=== PATIENT | male | born 2000 | race Caucasian/White ===

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

== ENCOUNTER 2022-07-24 15:23 | Outpatient (CLI) | payer OTHER, SELFPAY ==
[2022-07-24 19:20] LABS: Hemoglobin A1C 8.3 % (<5.7)
== END 2022-07-24 15:24 | disposition home or self-care (01) ==
LOC: ANHGOSHLAB 15:24
PROVIDERS: PCP Family Medicine; Visit Provider Family Medicine
DX: E10.9 Type 1 diabetes mellitus without complications (principal)
CPT/HCPCS: 36415; 83036

== ENCOUNTER 2023-01-08 15:18 | Outpatient (CLI) | payer OTHER, SELFPAY ==
[2023-01-08 20:12] LABS: Creatinine Urine 116.4 mg/dL
[2023-01-08 20:16] LABS: MALB Creatinine Ratio 21.7 mg/g (0-30); Microalbumin Urine Random 25.3 mg/L (0-16.7)
[2023-01-08 20:19] LABS: Hemoglobin A1C 8.8 % (<5.7)
== END 2023-01-08 15:19 | disposition home or self-care (01) ==
LOC: ANHGOSHLAB 15:19
PROVIDERS: PCP Family Medicine; Visit Provider Family Medicine
DX: E10.9 Type 1 diabetes mellitus without complications (principal)
CPT/HCPCS: 36415; 82043; 83036

== ENCOUNTER 2024-10-10 16:38 | Emergency (ER) | payer OTHER, SELFPAY ==
--- NOTE | ~2024-10-10 | XR_ITS ---
XR hand LT min 3V Ordering provider: Franci Fournier APRN History: . LT 5th mcp pain, finger bent backwards 2 days ago . Comparison: None. FINDINGS: BONES: No acute fracture or dislocation. JOINT SPACES: Well maintained. SOFT TISSUES: Unremarkable. IMPRESSION: No acute osseous abnormality left hand. Reviewed, dictated and finalized at location A.
--- OUTSIDE RECORDS SUMMARY | 2024-10-10 16:40 | XMS_ITS | Encounter Summary ---
Author Organization [facility] Address [address] [place] [address] Care Team Providers Care Neck Band Setter Name Role Phone Roni Tipton MD Primary Care Provider +1- [phone] Reason for Visit * Reason Onset Date Comments Results 04/28/2018 Encounter Details Date Type Department Care Team (Late st Contact Info) Description 04/28/2018 Telephone [facility] Pediatrics - Diabetes [address] [address] Nabeel Clemens, DOPE EDGER-JEWELRY COATER [address] [place] [phone] Results Social History Tobacco Use Types Packs/Day Years Used Date Smoking Tobacco: Never Smokeless Tobacco: Never Alcohol Use Standard Drinks/Week Comments Not Asked 0 (1 standard drink = 0.6 oz pur e alcohol) Sex and Gender Information Value Date Recorded Sex Assigned at Not on file Legal Sex Male 10:34 AM CDT Gender Identity Not on file Sexual Orientation Not on file documented as of this encounter Miscellaneous Notes * Telephone Encounter - Jimmy Fernandez RN - 04/28/2018 1:24 PM CST Notified mom that TSH and TTG were WNL, copy faxed to Dr Roni Tipton per mom's request. NING SPECIALIST documented in this encounter Plan of Treatment Not on file documented as of this encounter Visit Diagnoses Not on filedocumented in this encounter Care Teams Neck Band Setter Relationship Specialty Start Date End Date Roni Tipton MD [address] [place] [phone] PCP - General Family Medicine 07/13/14 documented as of this encounter
--- OUTSIDE RECORDS SUMMARY | 2024-10-10 16:40 | XMS_ITS | Encounter Summary ---
Author Organization [facility] Address [address] [place] [address] Care Team Providers Care Stab Setter And Driller Name Role Phone Roni Tipton MD Primary Care Provider +1- [phone] Encounter Details Date Type Department Care Team (Late st Contact Info) Description 10/12/2019 Telephone [facility] Pediatrics - Diabetes [address] [address] Nabeel Clemens, NATALI-BALL TRUING MACHINE OPERATOR [address] [place] [phone] Social History Tobacco Use Types Packs/Day Years [...] encounter Miscellaneous Notes * Telephone Encounter - Criss Gaines RN - 10/12/2019 9:39 AM CDT Talked to mom about care plan for school. School letter was mailed to home. documented in this encounter Plan of Treatment Not on file documented as of this encounter Visit Diagnoses Not on filedocumented in this encounter Care Teams Stab Setter And Driller Relationship Specialty Start Date End Date Roni Tipton MD [address] [place] [phone] PCP - General Family Medicine 07/13/14 documented as of this encounter
--- OUTSIDE RECORDS SUMMARY | 2024-10-10 16:40 | XMS_ITS | Encounter Summary ---
Author Organization [facility] Address [address] [address] Care Team Providers Care City Bailiff Name Role Phone Roni Tipton MD Primary Care Provider +1- [phone] Reason for Visit * Reason Onset Date Comments MEDICATION REFILL 08/28/2016 Encounter Details Date Type Department Care Team (Late st Contact Info) Description 08/28/2016 Refill [facility] Pediatrics - Endocrinology [address] [place] [address] Nemesio Boone MD [address] [place] [phone] MEDICATION REFILL Social History Tobacco Use Types Packs/Day Years Used Date Smoking Tobacco: Never Alcohol Use Standard Drinks/Week Comments Not Asked 0 (1 standard drink = 0.6 oz pur e alcohol) Sex and Gender Information Value Date Recorded Sex Assigned at Not on file Legal Sex Male 10:34 AM CDT Gender Identity Not on file Sexual Orientation Not on file documented as of this encounter Plan of Treatment Not on file documented as of this encounter Visit Diagnoses Diagnosis Type 1 diabetes mellitus without complication, with long-term current use of insulin (HCC) documented in this encounter Care Teams City Bailiff Relationship Specialty Start Date End Date Roni Tipton MD [address] [place] [phone] PCP - General Family Medicine 07/13/14 documented as of this encounter
--- OUTSIDE RECORDS SUMMARY | 2024-10-10 16:40 | XMS_ITS | Encounter Summary ---
Author Organization [facility] Address [address] [place] [address] Care Team Providers Care Cell Liner Name Role Phone Roni Tipton MD Primary Care Provider +1- [phone] Encounter Details Date Type Department Care Team (Late st Contact Info) Description 10/22/2017 Telephone [facility] Pediatrics - Diabetes [address] [address] Nabeel Clemens, HAND SINGER-RN CONCURRENT REVIEW [address] [place] [phone] Social History Tobacco Use Types Packs/Day Years [...] Telephone Encounter - Jimmy Fernandez RN - 10/22/2017 12:18 PM CDT Received fax from [facility] that Freestyle strips prescription is approved until 10/22/18, no quantity specified. Will update pharmacy. documented in this encounter Plan of Treatment Not on file documented as of this encounter Visit Diagnoses Not on filedocumented in this encounter Care Teams Cell Liner Relationship Specialty Start Date End Date Roni Tipton MD [address] [place] [phone] PCP - General Family Medicine 07/13/14 documented as of this encounter
--- OUTSIDE RECORDS SUMMARY | 2024-10-10 16:40 | XMS_ITS | Encounter Summary ---
Author Organization [facility] Address [address] [place] [address] Care Team Providers Care Internet Marketing Assistant Name Role Phone Roni Tipton MD Primary Care Provider +1- [phone] Reason for Visit * Reason Onset Date Comments General 12/03/2015 Encounter Details Date Type Department Care Team (Late st Contact Info) Description 12/03/2015 Telephone [facility] Pediatrics - Diabetes [phone] [place] [address] Nabeel Clemens, FERN PICKER-FINAL TESTER [address] [place] [phone] General Social History Tobacco Use Types Packs/Day Years [...] encounter Miscellaneous Notes * Telephone Encounter - Lenka Jon RN - 05/12/2016 1:48 PM DEICER ELEMENT WINDER MACHINE Returned call to mother to report that labs were not received. She is calling [facility] to follow up. Mother also asked how to use readings from Dexcom. Reviewed she would need to download Dexcom Clarityapp, get clarity code and call office when set up. She agreed. ER ELEMENT WINDER MACHINE * Telephone Encounter - Jimmy Fernandez RN - 12/03/2015 1:48 PM CDT I returned mom's call, reports Chai is having severe skin reactions once he takes his pods off theskin- blistering and irritation, takes 12 days to heal on average. This is new problem for Chai, and started with the latest box of PODS. They have called Brian, who reports this is a new issue, and they offered to replace the pods causing the irritation. Flight Engineer Performance Qualified reports the adhesive has not been changed but [facility] is receiving numerous similar calls suggesting otherwise. I advised, per Donte Clemens, PNP-BC- spray area with Flonase prior to placing pod. May also order tough pads on [employer] to act as barrier. Contact PMD for signs of infection. Mom agreed. documented in this encounter Plan of Treatment Not on file documented as of this encounter Visit Diagnoses Not on filedocumented in this encounter Care Teams Internet Marketing Assistant Relationship Specialty Start Date End Date Roni Tipton MD [address] [place] [phone] PCP - General Family Medicine 07/13/14 documented as of this encounter
--- OUTSIDE RECORDS SUMMARY | 2024-10-10 16:40 | XMS_ITS | Encounter Summary ---
Author Organization [facility] Address [address] [place] [address] Care Team Providers Care Grades 1 Thru 5 Teacher Name Role Phone Roni Tipton MD Primary Care Provider +1- [phone] Encounter Details Date Type Department Care Team (Late st Contact Info) Description 08/22/2018 Telephone [facility] Pediatrics - Diabetes [address] [address] Nabeel Clemens, MINISTER ASSISTANT-SKEIN YARN DYER [address] [place] [phone] Social History Tobacco Use Types Packs/Day Years [...] Telephone Encounter - Lenka Jon RN - 09/02/2018 3:07 PM CDT Bernardino submitted for test strips to [facility] covermymeds. * Telephone Encounter - Madina Ryan RN - 08/22/2018 12:44 PM CDT I returned mom's call regarding Chai wanting to stop using omnipod for right now and switch back to injections. She did not answer, LMOM for her to call back. My recommendations based on current insulin pump settings are: Lantus: 47 units Humalog: Breakfast: 1:8 Lunch: 1:5 Dinner: 1:5 Correction: 1unit for 40mg/dL BG is >150 documented in this encounter Plan of Treatment Not on file documented as of this encounter Visit Diagnoses Not on filedocumented in this encounter Care Teams Grades 1 Thru 5 Teacher Relationship Specialty Start Date End Date Roni Tipton MD [address] [place] [phone] PCP - General Family Medicine 07/13/14 documented as of this encounter
--- OUTSIDE RECORDS SUMMARY | 2024-10-10 16:40 | XMS_ITS | Encounter Summary ---
Author Organization [facility] Address [address] [place] [address] Care Team Providers Care Air Chief Marshal Name Role Phone Roni Tipton MD Primary Care Provider +1- [phone] Reason for Visit * Reason Comments Refill Request Encounter Details Date Type Department Care Team (Late st Contact Info) Description 03/14/2019 Refill [facility] Pediatrics - Diabetes [address] [address] Chelly Balderas MD Refill Request Social History Tobacco Use Types Packs/Day Years [...] encounter Miscellaneous Notes * Telephone Encounter - Lazara Elaine RN - 03/15/2019 12:07 PM CST I returned call to mother and scheduled Chai for 04/12/19 for follow up visit with Donte Clemens. FILLER documented in this encounter Plan of Treatment Not on file documented as of this encounter Visit Diagnoses Not on filedocumented in this encounter Care Teams Air Chief Marshal Relationship Specialty Start Date End Date Roni Tipton MD [address] [place] [phone] PCP - General Family Medicine 07/13/14 documented as of this encounter
--- OUTSIDE RECORDS SUMMARY | 2024-10-10 16:40 | XMS_ITS | Encounter Summary ---
Author Organization [facility] Address [address] [place] [address] Care Team Providers Care Leather Crafter Name Role Phone Roni Tipton MD Primary Care Provider [phone]- [phone] Encounter Details Date Type Department Care Team (Late st Contact Info) Description 11/30/2019 Telephone [facility] - Diabetes [address] [address] Nabeel Clemens, NATALI-ADULT BASIC EDUCATION INSTRUCTOR [address] [place] [phone] Social History Tobacco Use Types Packs/Day Years [...] Telephone Encounter - Criss Gaines RN - 11/30/2019 9:42 AM CDT VICKIE sent for Dexcom. documented in this encounter Plan of Treatment Not on file documented as of this encounter Visit Diagnoses Not on filedocumented in this encounter Care Teams Leather Crafter Relationship Specialty Start Date End Date Roni Tipton MD [address] [place] [phone] PCP - General Family Medicine 07/13/14 documented as of this encounter
--- OUTSIDE RECORDS SUMMARY | 2024-10-10 16:40 | XMS_ITS | Clinical Summary ---
Author Organization [facility] Address [address] [place] [address] Care Team Providers Care Library Media Specialist Name Role Phone Roni Tipton MD Primary Care Provider [phone]- [phone] Source Comments [facility],non-owned Affiliates and Associated Physician Practices is amultiple site organization consisting of ambulatory clinics and hospital sitesin [place], [place], [place] and [place]. This disclosure is being madepursuant to the Care Everywhere program and may not contain all information available regarding this patient. Last updated 17.[facility] Allergies No known active allergies Medications * Be aware that medications may not be up to date on this document. Alwaysverify current medications with the patient. Transparent Dressings MISC Use for pump site changes every 2-3 days. Dispense dressing size approximately 2x3 in size. 15 Each 09/22/19 15 Active insulin lispro (HUMALOG) 100 UNIT/ML vialIndications: Type 1 diabetes mellitus without complication, with long-term current use of insulin (HCC) Use max 100 units daily with insulin pump as directed 30 mL 5 06/07/19 19 Active insulin syringe-needle (BD ULTRAFINE II) 31G X 08/18 0.5 ML syringe Use with meals and snacks 4-6 times per day. 200 Each 3 08/25/19 19 Active FREESTYLE TEST STRIP test strip USE TO CHECK GLUCOSE 5 TO 9 TIMES DAILY 200 strip 10 09/03/19 Active Blood Glucose Monitoring Suppl (ONETOUCH VERIO FLEX SYSTEM) w/Device KIT Use 1 kit as directed 2 kit 09/15/19 Active ONETOUCH DELICA LANCETS 33G MISC Use 1 Each as directed 200 Each 09/15/19 Active Insulin Pen Needle (CARETOUCH PEN NEEDLES) 32G X 4 MM MISC Use 1 Each 4 times daily 200 Each 09/15/19 Active glucagon (GLUCAGON EMERGENCY) injection Inject 1 mg into muscle as needed 2 kit 04/12/19 Active blood glucose (ONETOUCH VERIO) test strip Use to check 5-9 times a day or as directed. 200 strip 04/12/19 Active Insulin Pen Needle (BD PEN NEEDLE WALT U/F) 32G X 4 MM MISC Inject 1 Each subcutaneously once daily Use with insulin injections 4 to 6 times daily 200 Each 11 05/10/19 20 Active insulin glargine (LANTUS SOLOSTAR) pen Inject 51 units once daily at directed. Must perform a 2 unit air shot prior to administration of dose. Max daily 60 units/day. 30 mL 5 07/14/19 20 Active Continuous Blood Gluc Sensor (DEXCOM G6 SENSOR) MISC Inject 1 Each subcutaneously every 10 days 9 Each 3 01/31/20 20 Active Continuous Blood Gluc Transmit (DEXCOM G6 TRANSMITTER) MISCIndications: Type 1 diabetes mellitus without complication (HCC) USE 1 EVERY 90 DAYS 1 Each 2 05/07/19 21 Active pen needles 31G X 6 MM 31G X 6 MM Use as directed Use to administer insulin 4-6 times daily 200 Each 5 06/27/19 21 Active Basaglar KwikPen (BASAGLAR) pen INJECT 50 UNITS SUBCUTANEOUSLY AT BEDTIME WITH ADDITIONAL 2 UNITS PRIME OR DIRECTED. 30 mL 5 08/09/19 21 Active insulin lispro (HUMALOG;ADMELOG ) 100 UNIT/ML pen INJECT 1 UNIT UNDER THE SKIN FOR EVERY 5 GRAMS OF CARBOHYDRATE AT MEALS AND SNACKS, MAXIMUM DAILY DOSE IS 70 UNITS 30 mL 09/10/19 21 Active Active Problems Problem Noted Date Diagnosed Date Type 1 diabetes mellitus without complication Overview (01/03/2015): Diagnosed August 2008 Assessment & Plan (12/15/2019 2:01 PM CDT): 1) change correction dose to 2 per 50 over 150 2) think critically about blood sugars levels and make adjustments accordingly or call for help 3) return in 4 months for Donte Assessment & Plan (04/13/2019 8:54 AM BUS STARTER): 1) use correction scale of 1 per 50 over 150 2) may give correction dose every 2 hours if blood sugar is not in target range 3) call as needed to review blood sugars 4) return in [address] Balderas Assessment & Plan (04/25/2018 12:18 PM BUS STARTER): 1) increase lunch and dinner to 1:5 2) call to upgrade to g6 sensor 3) call as needed to review blood sugars 4) must stop skipping boluses for meals and snacks 5) return in [address] Balderas Assessment & Plan (10/22/2017 8:03 AM CDT): 1) must bolus with snacks in the afternoon 2) Need to send auth for freestyle strips to [facility] [phone], [id number] 3) bolus before meals and snacks 4) return in 3 months for Donte Assessment & Plan (08/07/2016 1:02 PM CDT): 1) increase 0000 basal to 1.6 2) must bolus pre-meal 3) must program BG's out of target range in with bolus events in order to get correction dose 4) if unable to calibrate sensor every 12 hours, must check BG 4 times daily 5) Return in [address] Balderas Assessment & Plan (12/31/2015 3:18 PM CDT): 1) increase basal from 2pm to 0000 to 1.5 units 2) change target during day to 100 3) call as needed to review blood sugar 4) check screening labs today 5) return in [address] Balderas Assessment & Plan (03/07/2015 9:08 AM BUS STARTER): 1) increase basal to 1.35 from 1pm-0000 and 1.25 from [phone] 2) increase isf to 40 3) call in one week to review blood sugars 4) return in may for Dr. Balderas Assessment & Plan (12/06/2014 8:49 AM CDT): 1) increase basal at 0000 to 1 units per hour 2) increase ic ratio at 8pm to 1:9 3) continue to work on pre-meal bolusing 4) return in 3 months for Donte, [address] Balderas Social History Tobacco Use Types Packs/Day Years Used Date Smoking Tobacco: Never Smokeless Tobacco: Never Alcohol Use Standard Drinks/Week Comments Not Asked 0 (1 standard drink = 0.6 oz pur e alcohol) Sex and Gender Information Value Date Recorded Sex Assigned at Not on file Legal Sex Male 10:34 AM CDT Gender Identity Not on file Sexual Orientation Not on file Last Filed Vital Signs Vital Sign Reading Time Taken Comments Blood Pressure 116/72 12/14/2019 2:19 PM CDT Pulse 80 03/06/2015 1:57 PM BUS STARTER Temperature - - Respiratory Rate 16 03/06/2015 1:57 PM BUS STARTER Oxygen Saturation - - Inhaled Oxygen Concentration - - Weight 105.2 kg (231 lb 14.8 oz) 12/14/2019 2:19 PM CDT Height 178.2 cm (5' 10.16) 12/14/2019 2:19 PM C DT Body Mass Index 33.13 12/14/2019 2:19 PM CDT Plan of Treatment Health Maintenance Due Date Last Done Comments HIV SCREENING 2017 HPV VACCINE (1 - Male 3-dose series) 2017 MENINGOCOCCAL (Group B) VACCINE SHARED DECISION-MAKING (1 of 2 - Standard) 2018 DIABETES-HGB A1C 06/12/2020 12/14/2019, 11/2019, 09/01/2018, Additional history exists HEPATITIS C SCREENING 07/30/2020 DIABETES-FOOT EXAM WITH MONOFILAMENT 2020 DIABETES-SERUM CREATININE 2020 DTAP/TDAP/TD VACCINES (1 - Tdap) 2021 HEPATITIS B VACCINE (1 of 3 - 19+ 3-dose series) 2021 COVID-19 VACCINE ( season) 2023 DEPRESSION SCREENING 04/05/2024 DIABETES - URINE PROTEIN SCREENING 04/05/2024 12/14/2019, 09/01/2018, 05/07/2016, Additional history exists INFLUENZA VACCINE (Season Ended) 2024 ZOSTER VACCINE (1 of 2) 2052 HIB VACCINE Aged Out No longer eligi ble based on patient's age to complete this topic MENINGOCOCCAL GROUPS A/C/Y/W VACCINE Aged Out No longer eligible based on patient's age to complete this topic PNEUMOCOCCAL VACCINE Aged Out No long er eligible based on patient's age to complete this topic Procedures Procedure Name Priority Date/Time Associated Diagnosis Comments MICROALB/CREAT RATIO URINE RANDOM PANEL Routine 12/14/2019 3:11 PM CDT Type 1 diabetes mellitus without complication HEMOGLOBIN A1C - POCT INTERFACED Routine 12/14/2019 2:21 PM CDT from Last 3 Months or Most Recently Relevant to Health Maintenance Results * MICROALB/CREAT RATIO URINE RANDOM PANEL (12/14/2019 3:11 PM CDT) Creatinine Urine 113.23 mg/dL 12/14/19 20 3:42 PM CDT [facility] Microalbumin Urine 1.5 <1.7 mg/dL 12/14/2019 3:42 PM CDT [facility] Microalbumin/Crea tinine Ratio 13 <30 mg/g 12/14/2019 3:42 PM CDT [facility] Urine URINE SPECIMEN OBTAINED BY CLEAN CATCH PROCEDURE / Unknown Collection / Unknown 12/14/2019 3:11 PM CDT 12/14/2019 3:15 PM CDT us Nabeel Clemens MEDICAL SCIENTIST-GRAPHITE GRINDER LAB - URINE CHEMISTRY O RDERABLES Final Result [facility] [phone] * (ABNORMAL) HEMOGLOBIN A1C - POCT INTERFACED (12/14/2019 2:21 PM CDT) Hemoglobin A1C POCT 8.6(H) 3.4 - 6.1 % 12/14/2019 2:28 PM CDT [facility] Estimated Average Glucose 200 mg/dL 12/14/2019 2:28 PM CDT [facility] Blood BLOOD SPECIMEN / Unknown 12/14/2019 2:21 PM CDT 12/14/2019 2:28 PM CDT Nabeel Clemens MEDICAL SCIENTIST-GRAPHITE GRINDER LAB - POINT OF CARE ORD ERABLES Final Result [facility] [address] [place] [address] from Last 3 Months or Most Recently Relevant to Health Maintenance Insurance [facility] [place] [address] [facility] [place] [address] Care Teams Library Media Specialist Relationship Specialty Start Date End Date Roni Tipton MD [address] [place] [phone] PCP - General Family Medicine 07/13/14
--- OUTSIDE RECORDS SUMMARY | 2024-10-10 16:40 | XMS_ITS | Encounter Summary ---
Author Organization [facility] Address [address] [place] [address] Care Team Providers Care Paper Cone Machine Tender Name Role Phone Roni Tipton MD Primary Care Provider [phone]- [phone] Reason for Visit * Reason Onset Date Comments MEDICATION REFILL 10/22/2017 Encounter Details Date Type Department Care Team (Late st Contact Info) Description 10/22/2017 Refill [facility] [address] [place] [address] Nabeel Clemens, NATALI-TEACHER OF THE HEARING IMPAIRED [address] [place] [phone] MEDICATION REFILL Social History Tobacco Use Types [...] (HCC) documented in this encounter Care Teams Paper Cone Machine Tender Relationship Specialty Start Date End Date Roni Tipton MD [facility] [place] [phone] PCP - General Family Medicine 07/13/14 documented as of this encounter
[2024-10-10 16:46] VITALS: BP 144/69; PULSE 98; RESP 16; TEMP 36.6; O2SAT 100
--- NOTE | 2024-10-10 17:07 | ED.GENADULT ---
HPI - General Adult General Chief complaint: Extremity Injury, Upper Stated complaint: LT Pinky Finger Infection History of Present Illness HPI narrative: Chai Lugo Is a 24-year-old male who presents today with complaints of having pain to his left 5th finger. He states that he was going down a water slide hands 1st 3 days ago and his left pinky jammed into the side of slide and hyper extended to the side laterally. He denies any pain to his hand pain is only to his pinky finger. Related Data Allergies Allergy/AdvReac Type Severity Reaction Status Date / Time No Known Allergies Allergy Verified 10/10/24 16:53 Review of Systems Review of Systems: All systems reviewed & are unremarkable except as noted in HPI and below PMFSH Past Medical History Medical History Type 1 diabetes mellitus without complications Surgical History Surgical History History of excision of pilonidal cyst 03/24/21 Family History Family History Grandparent Family history of cardiovascular disease Carcinoma of colon Family history of malignant neoplasm of breast Family history of malignant neoplasm of esophagus Father Hypertension Hypothyroidism Social History Social History Smoking status: Never smoker Alcohol intake: never Substance use: never Lack of Transportation: No Lack of Food: Never True Current Housing: I Have Housing Concerned About Future Housing: No Difficulty Paying Gas/Electric Bills: No Difficulty Paying for Meds: No Currently Unemployed: No Education: High School Diploma/GED Difficulty w/ Childcare or Family Care: No Living arrangements: with family Additional living arrangements comments: PARENTS Occupation/Education: student Spiritual care concerns: No Exam Narrative: GENERAL: Well-appearing, well-nourished, and in no acute distress. HEAD: Normocephalic, atraumatic. EYES: PERRLA and EOMI. ENT: Nares clear, no rhinorrhea or epistaxis. Mucous membranes moist. Oropharynx without tonsillar hypertrophy exudate or other lesions. NECK: Supple. No adenopathy or masses. No carotid bruits or JVD CHEST: Clear to auscultation. No respiratory distress. No wheezes rales or rhonchi HEART: Regular rate and rhythm. No murmur heard. Normal peripheral pulses. EXTREMITIES: Normal range of motion. No edema. Left fifth phalanx without any obvious deformity/ ecchymosis/ erythema or swelling + pain at the proximal phalanx, no pain to the metacarpals or MCP joint, neurovascular intact SKIN: Warm, dry, no rash. NEURO: No focal deficits. Alert and oriented x3. PSYCH: Normal mood and affect. Course Course Level of Care: Express Care Visit Vital Signs Vital signs: Vital Signs Temperature 36.6 C 10/10/24 16:46 Pulse Rate 98 10/10/24 16:46 Respiratory Rate 16 10/10/24 16:46 Blood Pressure 144/69 H 10/10/24 16:46 Pulse Oximetry 100 10/10/24 16:46 Oxygen Delivery Room Air 10/10/24 16:46 Temperature 36.6 C 10/10/24 16:46 Pulse Rate 98 10/10/24 16:46 Respiratory Rate 16 10/10/24 16:46 Blood Pressure 144/69 H 10/10/24 16:46 Pulse Oximetry 100 10/10/24 16:46 Oxygen Delivery Room Air 10/10/24 16:46 Medical Decision Making [facility] Narrative Medical decision making narrative: 24-year-old presents after jamming and hyperextending laterally his left 5th phalanx on a water slide 3 days ago with continued pain to his finger. Normal range of motion. No edema. Left fifth phalanx without any obvious deformity/ ecchymosis/ erythema or swelling + pain at the proximal phalanx, no pain to the metacarpals or MCP joint, neurovascular intact plan to check an XR , he has taken Ibuprofen for pain XR: No acute osseous abnormality left hand. Plan to D/c with BURROWS therapy continue Motrin for pain Close PCP follow up Return precautions provided Medical Records Medical records reviewed: Yes I reviewed the external patient's medical records. Vital Signs Vital Signs: Vital Signs Temperature 36.6 C 10/10/24 16:46 Pulse Rate 98 10/10/24 16:46 Respiratory Rate 16 10/10/24 16:46 Blood Pressure 144/69 H 10/10/24 16:46 Pulse Oximetry 100 10/10/24 16:46 Oxygen Delivery Room Air 10/10/24 16:46 Temperature 36.6 C 10/10/24 16:46 Pulse Rate 98 10/10/24 16:46 Respiratory Rate 16 10/10/24 16:46 Blood Pressure 144/69 H 10/10/24 16:46 Pulse Oximetry 100 10/10/24 16:46 Oxygen Delivery Room Air 10/10/24 16:46 VItals reviewed by me Imaging Data Radiologist's impression: Impressions Hand X-Ray 10/10/24 17:29 IMPRESSION: No acute osseous abnormality left hand. Discharge Plan Discharge Clinical Impression: Finger pain, left Patient Disposition: Home Condition: Stable Instructions: Antibiotic Form, P.R.I.C.E. Treatment (ED) Additional Instructions: your xr did not show any broken bones Continue to rest/ elevate/ ice area of pain Continue Motrin for pain three times a day for the next 3 days Follow up with your PCP in 1 week If you have continued pain after 10 days repeat imaging may be considered Patient Language: Armenian Prescriptions: No Action Basaglar KwikPen U-100 Insulin 100 unit/mL (3 mL) insulin pen 47 unit SUB-Q .qhs Qty: 15 5RF (DME) pen needle, diabetic 32 gauge x 5/32 needle See Rx Instructions .Route Qty: 200 5RF Rx Instructions: Use with Insulin 4 x day (DME) Dexcom G7 Sensor Device See Rx Instructions .Route Qty: 13 3RF Rx Instructions: As directed (DME) Dexcom G7 Manager Flight Operations Misc See Rx Instructions .Route Qty: 1 0RF Rx Instructions: As directed insulin glargine [Lantus Solostar U-100 Insulin] 100 unit/mL (3 mL) insulin pen 58 unit subcut QPM Qty: 165 3RF insulin lispro [Humalog KwikPen Insulin] 100 unit/mL insulin pen See Rx Instructions .ROUTE .COMPLEX Qty: 90 1RF Dose Instruction: INJECT 1 UNIT SUBCUTANEOUSLY FOR EVERY 5 GRAMS OF CARBOHYDRATE AT MEALS AND SNACKS, MAXIMUM DAILY DOSE IS 70 UNITS Rx Instructions: INJECT 1 UNIT SUBCUTANEOUSLY FOR EVERY 5 GRAMS OF CARBOHYDRATE AT MEALS AND SNACKS, MAXIMUM DAILY DOSE IS 100 UNITS Follow-up/Referrals: Roni Tipton MD [Primary Care Provider] - 1 Week Time of Disposition: 17:46
== END 2024-10-10 17:50 | disposition home or self-care (01) ==
PROVIDERS: Emergency Provider Nurse Practitioner Family; PCP Family Medicine
DX: M79.645 Pain in left finger(s) (principal); E10.9 Type 1 diabetes mellitus without complications
CPT/HCPCS: 73130; 99213; G0463